=== PATIENT | female | born 1955 | race Caucasian/White ===

== ENCOUNTER → 2025-01-23 12:12 | Outpatient (REF) | payer MEDICARE, SELFPAY | LOC: RAD 12:12 | PROVIDERS: ATTENDING PHYSICIAN Student in an Organized Health Care Education/Training Program; FAMILY PHYSICIAN Nurse Practitioner | DX: Z01.818 Encounter for other preprocedural examination (principal) | CPT/HCPCS: 71046 ==

== ENCOUNTER → 2025-02-18 13:37 | Outpatient (REF) | payer MEDICARE, SELFPAY | LOC: MRI 13:37 | PROVIDERS: ATTENDING PHYSICIAN Student in an Organized Health Care Education/Training Program; FAMILY PHYSICIAN Nurse Practitioner | DX: M79.671 Pain in right foot (principal) | CPT/HCPCS: 73718; 76014; 76015 ==

== ENCOUNTER 2025-03-30 05:48 | Day surgery (SDC) | payer MEDICARE, SELFPAY ==
[2025-03-30 06:10] VITALS: BMI 23.9
[2025-03-30 06:20] VITALS: BP 143/79
[2025-03-30] MEDS: NORMOSOL-R/PLASMALYTE-A 1000 IV (06:20)
[2025-03-30 06:22] VITALS: BMI 23.9
[2025-03-30] MEDS: CELEBREX 200 MG PO (06:23)
[2025-03-30] MEDS: TYLENOL 1000 MG PO (06:23)
[2025-03-30 07:45] VITALS: BP 140/81
== END 2025-03-30 08:30 | disposition home or self-care (01) ==
LOC: SDS 05:48
PROVIDERS: ATTENDING PHYSICIAN Student in an Organized Health Care Education/Training Program
DX: D21.21 Benign neoplasm of connective and other soft tissue of right lower limb, including hip (principal); M79.671 Pain in right foot
CPT/HCPCS: 28041; 88304